=== PATIENT | female | born 1975 | race Two or more races ===

== ENCOUNTER → 2016-12-01 | Outpatient (CLI) | payer OTHER | END | disposition home or self-care (01) | LOC: RAD 15:15 | PROVIDERS: ATTEND Student in an Organized Health Care Education/Training Program | DX: R10.2 Pelvic and perineal pain (principal) | CPT/HCPCS: 93975 ==

== ENCOUNTER 2019-10-07 11:32 | Emergency (ER) | payer OTHER ==
[~2019-10-07] VITALS: Ht 160 cm; Wt 95.5 kg
[2019-10-07] MEDS ORDERED: IBUPROFEN 600 MG TABLET PO ONE (12:00)
[2019-10-07] MEDS ORDERED: DEXAMETHASONE 4 MG/ML, 1ML IM ONE (12:30)
[2019-10-07] MEDS ORDERED: CEFTRIAXONE 1,000 MG IM ONE (12:30)
[2019-10-07] MEDS ORDERED: IBUPROFEN 600 MG TABLET ONE (12:37)
[2019-10-07] MEDS ORDERED: DEXAMETHASONE 4 MG/ML, 5ML ONE (12:37)
[2019-10-07] MEDS ORDERED: CEFTRIAXONE 1,000 MG ONE (12:38)
[2019-10-07 13:03] VITALS: BP 138/76
== END 2019-10-07 14:04 | disposition home or self-care (01) ==
LOC: ED 12:26
DX: J02.9 Acute pharyngitis, unspecified (principal); R50.9 Fever, unspecified
CPT/HCPCS: 96372; 99284; J0696; J1100